=== PATIENT | male | born 1960 | race Caucasian/White ===

== ENCOUNTER 2021-07-16 18:18 | Observation (INO) ==
[2021-07-16] MEDS ORDERED: HYDROmorphone INJ 1 MG/ML SYRINGE IV STA ×2 (18:43→19:16)
[2021-07-16] MEDS ORDERED: LIDOCAINE 2% 20 MG/ML 5 ML SYR IV ONE (18:53)
[2021-07-16] MEDS ORDERED: LIDOCAINE 2% JELLY 5 ML TUBE ONE (18:53)
--- NOTE | 2021-07-16 18:57 | Emergency Department Note ---
Impression & Plan Urinary retention, Hematuria ED Provider Note Name: DAVY BENITES Age: 60 Sex: M Arrives Via: Walk-In Informant: Patient, ED Provider: Patel Crooks MD Chief Complaint: Inability to urinate Impression: As per impressions above Medical Decision Makin-year-old gentleman on no chronic medications with a history of gout, renal colic and likely hypertension arrives for evaluation of inability to urinate. Patient with gradually worsening retention over the last month or so acutely retaining this morning as last urine output about 8 AM. He was seen by his urologist in [facility] where multiple attempts to place a Childress as well as a cystoscopy as well as a wire were unsuccessful in getting a Childress placed to help drain his bladder. On arrival he does have some blood at the meatus though his ultrasound bedside reveals well over a liter of urine in the bladder itself. Nursing attempted to place coud though given resistance and herrera blood this attempt was abandoned. Urology was consulted and given these findings they will take patient to the OR for further evaluation. The concern is that there is a false passage/urethral tear. Patient's pain was controlled with IV Dilaudid. A free anesthesia work-up was initiated including EKG, chest x-ray and basic labs. He has mild renal insufficiency consistent with acute retention. Hospitalist was made aware is likely patient will need monitoring postoperatively. Patient and kept up-to-date on plans and patient stable throughout Triage/Nursing Notes reviewed by Me Differentials: BPH, urethral injury, UTI, prostatitis, renal failure, electro lyte abnormality amongstother pathologies. Vital Signs: reviewed and remarkable for hypertension Interventions: Dilaudid IV Labs:Reviewed and remarkable for mild CR elevation Imaging:Bedside ultrasound by me reveals a large amount of urine within the bladder Consults:Dr. Bhat of [facility] urology. Patient taken to the OR for further management Plan: Disposition:Taken to the OR for further management Condition: Good History of Present Illness: 60-year-old gentleman arrives for evaluation of urinary retention. Patient states that for the last month he has been having some decreased urinary abilities and increased urination. About a week ago he noticed significant difficulties. And then this morning around 8 AM he has not had any urination since. He was seen by his urologist in [facility] who attempted to place a Childress due to inability scoped him and said he would need to go to [facility] for evaluation. He has never been at this facility. He has not seen any urologist here. He states he does not believe any of the urologist are aware that he is coming. Patient states he is having severe suprapubic pain that radiates to both flanks. Associated with mild nausea. Ruchi n is worse with movement and only slightly better with rest. Denies any leg swelling, vomiting, chest pain, shortness of breath, fevers, chills, headache, neck pain or any other signs or symptoms. No previous issues to this degree. He does have a history of kidney stones and feels he may have had some scarring from that. ROS: See above HPI for pertinent positives & negatives. A total of 10 systems reviewed and were otherwise negative. Past Medical History:Gout, renal colic Past Surgical History:No previous surgeries Family History:Healthy Social History: for 40+ years, no smoking, no alcohol, no drugs, has 1 daughter Home Medications:none Allergies:nkda Vitals:Blood Pressure: 206/125, Pulse 93, RR 20, T 36.7C, O2 98% on RA Physical Exam: GENERAL: Patient is very uncomfortable appearing and in moderate distress. EYES: No scleral icterus, unremarkable pupils. ENT: Mucous membranes moist, no nasal congestion. NECK: No masses appreciated, nomeningismus, trachea is midline. RESPIRATORY: No dyspnea. Clear to auscultation and equal bilaterally. No wheeze, no rhonchi. CARDIOVASCULAR: Regular rate and rhythm.No murmurs, rubs, gallops appreciated. GASTROINTESTINAL: TTP over suprapubic, otherwise abdomen soft, non-tender, no peritonitis.Bowel sounds positive.No masses appreciated. : Normal BACK: No midline tenderness, no CVA tenderness EXTREMITIES: Normal motion all extremities, no cyanosis, no edema. NEUROLOGIC: Alert and oriented, no acute motor or sensory deficits, no focal weakness, cranial nerves grossly intact. SKIN: No rash, no jaundice, no diaphoresis. PSYCH: Appropriate GCS: 15 ED Course: Times/Reassessments: Patient vastly improved with some IV Dilaudid though still uncomfortable. Patel Crooks MD Past Med/Surg History Social History Smoking Status: Never smoker Second Hand Exposure: No; Hx Alcohol Use: No Hx Substance Use: No Communication Ability: Effective Beliefs That Will Affect Care: None Current Living Situation: Spouse Feels Safe at Home: Yes Assistive Devices: Glasses Allergies Allergies Allergy/AdvReac Type Severity Reaction Status Date / Time No Known Allergies Allergy Unverified 07/16/21 20:17 Home Meds Home Medications Medication Instructions Recorded Confirmed acetaminophen 500 mg tablet 1,000 mg PO Q6H PRN 07/16/21 07/16/21 (Tylenol Extra Strength) alfuzosin 10 mg tablet,extended 10 mg PO QPM 07/16/21 07/16/21 release 24 hr cyclobenzaprine 10 mg tablet 10 mg PO TID PRN 07/16/21 07/16/21 hydrocodone 5 mg-acetaminophen 325 1 tab PO Q6 PRN 07/16/21 07/16/21 mg tablet indomethacin 50 mg capsule 50 mg PO TID PRN 07/16/21 07/16/21 Previous Rx's Medication Instructions Recorded cephalexin 500 mg capsule 500 mg PO BID 7 Days #14 cap 07/17/21 Results & Data (ED) Vital Signs Vital Signs - 24 hr 07/16/21 18:21 07/16/21 19:30 07/16/21 20:23 Temperature 36.7 C Temperature Source Temporal Artery Scan Pulse Rate 93 H 80 Pulse Rate [Apical] 84 Pulse Rhythm Regular Respiratory Rate 20 16 18 Respiratory Effort / Characteristics Non-Labored Spontaneous Respiratory Depth Normal Blood Pressure 206/125 H 178/101 H Blood Pressure [Left Arm] 173/94 H Blood Pressure Mean 152 Blood Pressure Mean [Left Arm] 120 Blood Pressure Position Sitting Pulse Oximetry 98 95 95 Oxygen Delivery Method Room Air Room Air Room Air Sepsis Recent Fever Within 48 Hours No Sepsis New/Unexplained Change in Mental Status No Sepsis Action Taken by Nursing No Action Required Laboratory Data Result diagrams: 07/17/21 09:29 07/17/21 09:29 Lab Results 07/16/21 07/16/21 Range/Units 18:57 18:57 WBC 9.73 (4.8-10.8) K/uL RBC 5.46 (4.7-6.1) M/uL Hgb 16.3 (14.0-18.0) g/dL Hct 46.3 (42-52) % MCV 84.8 (80-100) fL MCH 29.9 (25-34) pg MCHC 35.2 (32-36) g/dL RDW Std Deviation 41.5 (36.4-46.3) fL RDW Coeff of Shanell 13.5 (11.5-14.5) % Plt Count 269 (130-400) K/uL MPV 9.0 (7.4-10.4) fL Immature Gran % (Auto) 0.9 % Neut % (Auto) 63.7 % Lymph % (Auto) 25.5 % Sumner % (Auto) 7.9 % Eos % (Auto) 1.7 % Baso % (Auto) 0.3 % Neut # (Auto) 6.19 (1.4-6.5) K/uL Lymph # (Auto) 2.48 (1.2-3.4) K/uL Sumner # (Auto) 0.77 H (0.11-0.59) K/uL Eos # (Auto) 0.17 (0-0.5) K/uL Baso # (Auto) 0.03 (0-0.2) K/uL Immature Gran # (Auto) 0.09 H (0.00-0.02) K/uL Sodium 138 (136-145) mmol/L Potassium 4.0 (3.5-5.1) mmol/L Chloride 105 (98-107) mmol/L Carbon Dioxide 26 (21-32) mmol/L Anion Gap 7 (3-11) BUN 20 (6-23) mg/dl Creatinine 1.46 H (0.6-1.4) mg/dl Est Cr Clr Drug Dosing 79.7 ml/min Est GFR ( Amer) 60.2 ml/min Est GFR (Non-Af Amer) 51.9 ml/min BUN/Creatinine Ratio 13.7 (10-20) Glucose 101 H (70-99(Fasting)) mg/dl Calcium 9.9 (8.5-10.1) mg/dl Total Bilirubin 0.7 (0.2-1.0) mg/dl Direct Bilirubin 0.1 (0-0.2) mg/dl AST 18 (13-39) U/L ALT 16 (7-52) U/L Alkaline Phosphatase 60 (34-104) U/L Total Protein 7.2 (6.0-8.3) gm/dl Albumin 4.4 (3.4-5.0) gm/dl Administered Medications Alfuzosin HCl (Alfuzosin Hcl 10 Mg Tab) 10 mg PO QPM LYUDMILA Stop: 08/15/21 22:30 Last Admin: 07/17/21 01:29 Dose: Not Given Documented by: [id number] Sodium Chloride (Nss 1000ml) 1,000 mls @ 80 mls/hr IV .[id number] LYUDMILA Stop: 08/15/21 22:30 Last Admin: 07/16/21 23:17 Dose: 80 mls/hr Documented by: [id number] Oxycodone/Acetaminophen (Oxycodone/Acetaminophen 5mg/325mg Tab) 1 tab PO Q4H PRN PRN Reason: MODERATE Pain (4,5,6) & Pre PT Stop: 07/30/21 22:30 Last Admin: 07/17/21 04:57 Dose: 1 tab Documented by: [id number] Discontinued Medications Hydromorphone HCl (Hydromorphone Inj 1 Mg/Ml Syringe) 1 mg IV NOW STA Stop: 07/16/21 18:44 Last Admin: 07/16/21 19:20 Dose: 1 mg Documented by: [id number] Hydromorphone HCl (Hydromorphone Inj 1 Mg/Ml Syringe) 1 mg IV NOW STA Stop: 07/16/21 19:17 Last Admin: 07/16/21 19:29 Dose: Not Given Documented by: [id number] Ciprofloxacin (Cipro / D5w) 400 mg in 200 mls @ 100 mls/hr IV NOW STA; Protocol Stop: 07/16/21 21:56 Last Infusion: 07/16/21 22:33 Dose: 0 mls/hr Documented by: [id number] Admin: 07/16/21 20:09 Dose: 100 mls/hr Documented by: [id number] Lidocaine HCl (Lidocaine 2% 20 Mg/Ml 5 Ml Syr) Confirm Administered Dose 100 mg IV .STK-MED ONE Stop: 07/16/21 18:54 Last Admin: 07/16/21 19:29 Dose: Not Given Documented by: [id number] Lidocaine HCl (Lidocaine 2% Jelly 5 Ml Tube) Confirm Administered Dose 5 ml .ROUTE .STK-MED ONE Stop: 07/16/21 18:54 Last Admin: 07/16/21 19:25 Dose: 5 ml Documented by: [id number] Menthol (Cough Drop (Sugar Free) Dorina 24 Dorina/1 Box) Confirm Administered Dose 24 dorina BUCCAL .Advaxis-MED ONE Stop: 07/17/21 04:00 Last Admin: 07/17/21 04:00 Dose: 24 dorina Documented by: [id number] Imaging Data Radiologist's Impression: Chest X-Ray 07/16/21 19:27 XR chest 1V portable CLINICAL HISTORY: pre-op. Evaluate cardiopulmonary status COMPARISON STUDY: No previous studies for comparison. TECHNIQUE: 1 view of the chest FINDINGS: Single frontal view of the chest demonstrates the cardiomediastinal silhouette to be within normal limits. The lungs are clear of alveolar opacities. There is no evidence for pleural effusion. There is no evidence for vascular congestion. There is no acute osseous pathology. IMPRESSION: 1. No acute cardiopulmonary disease. ACT 112: Negative or not required by law. Electronically signed by: Shelton Jack M.D. 07/16/2021 8:06 PM Discharge Plan Visit Data Chief Complaint: Unable to Void Stated Complaint: UNABLE TO VOID ED Provider: Patel Crooks Discharge Problem: Urinary retention, Hematuria Patient Disposition: Admitted As Inpatient Condition: Good Discharge Instructions Interventions: ED Discharge Assessment Last Done: 07/16/21 20:23
[2021-07-16 19:15] LABS: Basophils # (auto) 0.03 K/uL (0-0.2); Basophils % (auto) 0.3 %; Eosinophils # (auto) 0.17 K/uL (0-0.5); Eosinophils % (auto) 1.7 %; Hematocrit (blood only) 46.3 % (42-52); Hemoglobin 16.3 g/dL (14.0-18.0); Immature Granulocytes # (auto) 0.09 K/uL (0.00-0.02); Immature Granulocytes % (auto) 0.9 %; Lymphocytes # (auto) 2.48 K/uL (1.2-3.4); Lymphocytes % (auto) 25.5 %; Mean Corpuscular Hemoglobin 29.9 pg (25-34); Mean Corpuscular Hgb Conc 35.2 g/dL (32-36); Mean Corpuscular Volume 84.8 fL (80-100); Monocytes # (auto) 0.77 K/uL (0.11-0.59); Monocytes % (auto) 7.9 %; Neutrophils # (auto) 6.19 K/uL (1.4-6.5); Neutrophils % (auto) 63.7 %; Platelet Count 269 K/uL (130-400); RDW Coefficient of Variation 13.5 % (11.5-14.5); RDW Standard Deviation 41.5 fL (36.4-46.3); Red Blood Count 5.46 M/uL (4.7-6.1); White Blood Count 9.73 K/uL (4.8-10.8)
[2021-07-16 19:31] LABS: Albumin Level 4.4 gm/dl (3.4-5.0); BUN Creatinine Ratio 13.7 (10-20); Bilirubin Direct 0.1 mg/dl (0-0.2); Bilirubin,Total 0.7 mg/dl (0.2-1.0); Calcium 9.9 mg/dl (8.5-10.1); Creatinine Clr Calc Pharmacy 79.7 ml/min; Est GFR (African American) 60.2 ml/min; Est GFR (Non-African American) 51.9 ml/min; Total Protein 7.2 gm/dl (6.0-8.3)
[2021-07-16] MEDS ORDERED: CIPROFLOXACIN / D5W 400 MG/200 ML BAG IV STA (19:57)
--- NOTE | 2021-07-16 20:05 | Urology Consultation ---
Date of Consultation July 16, 2021 Assessment & Plan (1) Urinary retention: Based on the patient's symptoms I suspect the patient is suffering from obstructive uropathy. His symptomatology is consistent with this and may be related to BPH. Because the patient has already had instrumentation attempted at bedside and has had an unsuccessful attempt at placing a Childress catheter emergency department I feel it is prudent to take the patient to the operating room for formal cystoscopy. I discussed case with my attending physician Dr. Bhat who agrees and we have notified the operating room team and will proceed with this procedure this evening. I have obtained consent from the patient for cystoscopy with possible urethral dilatation. Dr. Bhat will determine if any additional interventions are required at the time of surgery. I have outlined the risks, benefits, and alternatives with the patient. Additional recommendations be forthcoming based on operative findings and the patient's postoperative recovery As patient has had instrumentation performed in his previous encounter I have ordered preoperative ciprofloxacin. ATTENDING NOTE: Independently evaluated, assessed, and examined. Agree with above. Anuric/Obstructed since approx 8 am. Failed attempted catheter at [facility] with hematuria post attempt. Severe distension with discomfort. Risks and benefits discussed at length for procedure. These include bleeding, infection, injury to surrounding tissues or organs, and risks associated with anesthesia. Patient states understanding and agrees to proceed. Will sign consent and proceed. Due to severe obstruction, anuria, and concern for impending rupture or damage to kidney with continued obstruction will deem need for emergent intervention. Plan for emergent Cystoscopy with dilation and catheter placement. History of Present Illness Reason for Consultation: Urinary retention History of Present Illness This is a 60-year-old male who presented to [facility] emergency department secondary to inability to urinate. Patient says that over the past several months he has noted some symptoms of obstructive uropathy. He says that he has noted a decreased urine stream and he has sensation of incomplete bladder emptying. He denies any dysuria or hematuria. He denies any fevers, shakes, or chills. He does not have a known history of BPH. He did seek medical attention for this problem previously and he was initiated on Flomax with no relief of his symptoms. Patient does note that when he stands to urinate takes considerable amount of time to initiate voiding. Patient notes that he was able to void yesterday with a certain degree of difficulty however he has not been able to void since approximately 8:00 AM this morning. Because of this problem he sought medical attention at the urologist office in [place], [place]. He saw this service at approximately 3:00 PM today. They attempted to place a Childress catheter in the office without success. A bedside cystoscopy was also attempted without success. Because of this it was recommended that the patient report to [facility] emergency department for further evaluation. Patient says he has never had a cystoscopy before. His most recent oral intake was at approximately 2:00 PM today at which she had approximately 2 small chicken nuggets. In the emergency department the patient did have a chest x-ray that did not show any evidence of pleural effusion or pneumonia. CBC revealed white blood cell co unt, hemoglobin, hematocrit, and platelet count are all within normal range. Chemistry profile showed sodium and potassium are both normal. BUN was within normal range but creatinine had a slight elevation at 1.46. There were no previous labs available for comparison. There is no significant elevation of LFTs. The patient's COVID test was performed was noted to be negative. Patient did have a an EKG that showed sinus rhythm without changes indicative of acute ischemia. It is noteworthy to mention that in the emergency department at [facility] the patient had a bladder scan where he was noted to have an excess of 1 L of urine/fluid in his bladder. Several attempts were made to place Childress catheter by nursing staff and that they were able to retrieve some herrera blood but it was felt that the Childress catheter did not pass into his bladder properly and therefore a Childress catheter was not able to be placed. The patient denies any significant past medical history other than arthritis and gout. Patient says that he did have a stress test a few years ago that was done for preoperative clearance for a orthopedic procedure. He denies history of diabetes or coronary artery disease. 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 He was uncomfortable secondary to the inability to empty his bladder. Allergies Allergy/AdvReac Type Severity Reaction Status Date / Time No Known Allergies Allergy Unverified 07/16/21 20:17 Home Medications Medication Instructions Recorded Confirmed Type acetaminophen 500 mg tablet 1,000 mg PO Q6H PRN 06/06/22 06/06/22 History (Tylenol Extra Strength) alfuzosin 10 mg tablet,extended 10 mg PO QPM 07/16/21 07/16/21 History release 24 hr cyclobenzaprine 10 mg tablet 10 mg PO TID PRN 07/16/21 07/16/21 History hydrocodone 5 mg-acetaminophen 325 1 tab PO Q6 PRN 07/16/21 07/16/21 History mg tablet indomethacin 50 mg capsule 50 mg PO TID PRN 07/16/21 07/16/21 History Patient History Social History Smoking Status: Never smoker Feels Safe at Home: Yes Review of Systems Constitutional: no fever and no chills Eyes: no diplopia Ear, Nose, Mouth, Throat: no ear pain Respiratory: no cough and no dyspnea Cardiovascular: no chest pain Gastrointestinal: no abdominal pain, no nausea and no vomiting Genitourinary: + as per Subjective / HPI; no flank pain Musculoskeletal: no back pain Integumentary: no rash Neurologic: no localized weakness Physical Exam Constitutional: WD/WN, vitals as above Eyes: no conjunctival abnormality ENMT: Ears: no hearing impairment and no external ear abnormality Mouth: no oropharynx abnormality Neck: trachea midline Respiratory: normal respiratory effort, lungs clear to auscultation Cardiovascular: Rate/Rhythm: regular rate and regular rhythm Gastrointestinal (Abdomen): Abdomen is soft and nondistended. Patient did have considerable discomfort with palpation of the suprapubic area. Musculoskeletal: No calf tenderness Skin: no rashes Neurologic: moves all extremities Psychiatric: A+Ox3, euthymic affect Results & Data ([facility]) Vital Signs (Past 12 Hours) Vital Signs Temp Pulse Pulse Resp BP BP Pulse Ox 07/16/21 19:30 84 16 173/94 H 95 07/16/21 18:21 36.7 C 93 H 20 206/125 H 98 PG Care Time/CCT Total # of Minutes Spent Total Time Spent with Patient: Total time spent is greater than 50% in coordination of care (as documented) at patient's floor/unit and/or counseling patient: Coding Level of Care Code 39275 Inpt Consult Level 5 Diagnoses Urinary retention R33.9
--- NOTE | 2021-07-16 20:08 | XRay Report ---
XR chest 1V portable CLINICAL HISTORY: pre-op. Evaluate cardiopulmonary status COMPARISON STUDY: No previous studies for comparison. TECHNIQUE: 1 view of the chest FINDINGS: Single frontal view of the chest demonstrates the cardiomediastinal silhouette to be within normal li mits. The lungs are clear of alveolar opacities. There is no evidence for pleural effusion. There is no evidence for vascular congestion. There is no acute osseous pathology. IMPRESSION: 1. No acute cardiopulmonary disease. ACT 112: Negative or not required by law. Electronically signed by: Shelton Jack M.D. 07/16/2021 8:06 PM
[2021-07-16] MEDS ORDERED: fentaNYL citrate 100 MCG/2 ML VIAL IV PRN (20:09)
[2021-07-16] MEDS ORDERED: ePHEDrine sulfate 50 MG/ML AMP IV PRN (20:09)
[2021-07-16] MEDS ORDERED: ONDANSETRON INJ 2 MG/ML 2 ML VIAL IV PRN (20:09)
[2021-07-16] MEDS ORDERED: ATROPINE SULFATE 0.1 MG/ML 10ML SYR IV PRN (20:09)
--- NOTE | 2021-07-16 20:09 | Anesthesiology Consultation ---
Date of Service July 16, 2021 Assessment & Plan (1) Encounter for pre-operative examination: Chart Review Chart Review: Patient NOT seen in Pre Admission Testing emergent nature of procedure Consults Requested none History Surgery Operation Date: 07/16/21 20:30 Proposed Procedures p Cystoscopy - Bob Bhat, Height/Weight Height: 6 ft 2 in Weight: 135.4 kg Social History Smoking Status: Never smoker Physical Exam Vital Signs Last Vital Signs Temp 98.1 F 07/16/21 18:21 Pulse 84 07/16/21 19:30 Resp 16 07/16/21 19:30 BP 173/94 H 07/16/21 19:30 Pulse Ox 95 07/16/21 19:30 Testing Laboratory Results 07/16/21 18:57 07/16/21 18:57 Electrocardiogram Date: 07/16/21 Findings: + NSR @ Chest X-Ray Date: 07/16/21 Findings: + NAD
[2021-07-16] MEDS ORDERED: fentaNYL citrate 100 MCG/2 ML VIAL ONE (20:13)
[2021-07-16] MEDS ORDERED: LIDOCAINE 2% 2 ML VIAL/AMP(20MG/ML) INFIL ONE (20:13)
[2021-07-16] MEDS ORDERED: PROPOFOL IV EMULSION 10 MG/ML 20 ML VIAL IV ONE (20:13)
[2021-07-16] MEDS ORDERED: SUCCINYLCHOLINE 100MG/5ML SYR IV ONE (20:13)
[2021-07-16] MEDS ORDERED: ONDANSETRON INJ 2 MG/ML 2 ML VIAL ONE (20:13)
--- NOTE | 2021-07-16 20:33 | History & Physical Report ---
Date of Service July 16, 2021 History of Present Illness Primary Care Provider: NO PCP Allergies Allergy/AdvReac Type Severity Reaction Status Date / Time No Known Allergies Allergy Unverified 07/16/21 20:17 Home Medications Medication Instructions Recorded Confirmed Type acetaminophen 500 mg tablet 1,000 mg PO Q6H PRN 07/16/21 07/16/21 History (Tylenol Extra Strength) alfuzosin 10 mg tablet,extended 10 mg PO QPM 07/16/21 07/16/21 History release 24 hr cyclobenzaprine 10 mg tablet 10 mg PO TID PRN 07/16/21 07/16/21 History hydrocodone 5 mg-acetaminophen 325 1 tab PO Q6 PRN 07/16/21 07/16/21 History mg tablet indomethacin 50 mg capsule 50 mg PO TID PRN 07/16/21 07/16/21 History Past Med/Surg History Social History Smoking Status: Never smoker Feels Safe at Home: Yes Results & Data Results & Data ([facility]) Vital Signs (Past 12 Hours) Vital Signs Temp Pulse Pulse Resp BP BP Pulse Ox 07/16/21 20:23 80 18 178/101 H 95 07/16/21 19:30 84 16 173/94 H 95 07/16/21 18:21 36.7 C 93 H 20 206/125 H 98 Code Status & VTE Plan VTE Prophylaxis Plan VTE Prophylaxis will be ordered: Yes Resident Activity Tracking Resident Involvement: Resident Care Provided Care Provided: Adult Hospital Medicine
--- NOTE | 2021-07-16 21:15 | Operative Report ---
PG Post Operative Report Pre & Post Diagnosis Operation Date: 07/16/21 20:30 Pre-Op Diagnosis: Urinary Stricture, Large Volume Retention Post-Op Diagnosis: Same I identified the patient and participated in the time-out.: Yes Procedure Operation Date: 07/16/21 20:30 Actual Procedures p Cystoscopy with Urethral Dilation and difficult catheter placement (Not Applicable) - Bob Bhat DO Surgeon Bob Bhat, II, DO Watch Repairer None Estimated Blood Loss 5 Findings Consistent with Post-Op Diagnosis Severe pinpoint stricture of bulbar urethra with large false passage on the left lateral position next to stricture. Large prostatic varicosity. Dilated sequentially to 20 Fr. Specimens None Drains 18 Fr [place] Tip Complications none Disposition Disposition: Recovery Room Indications Patient with severe retention and failed catheter placement under scope at outlying facility. Risks and benefits discussed at length. Description of Procedure Patient was consented and brought back to the operating room. Patient was placed under anesthesia in the supine position and moved to the dorsal lithotomy position. Patient was prepped and draped in the regular sterile fashion. A time out was completed. A 30 degree Cystoscope was placed into the urethra. At the bulbar urethra a large false passage was noted on the left lateral wall of the urethra. The true lumen was able to be identified with a pinpoint stricture. A wire was able to be placed. A 5 Fr catheter was able to be placed and urine was aspirated. The wire was replaced and the stricture was sequentially dilated with Grazyna dilators from 10 fr to 20 Fr. The scope was then advanced to bladder and the entire bladder was examined after draining the bladder. The UO's were identified as well as the bladder neck, trigone, dome, and the other important landmarks. Large varicosities were appreciated. The urethra was reevaluated. No major areas of concern. The large false passage was having minor bleeding but without significant issue. The stricture appeared short and was well dilated. The bladder was inspected a final time. The bladder was partially emptied. The scope was removed with the wire remaining in place. A 18 fr [place] tip was placed over the wire and the bladder drained well with a mild pink tinge. Approx 1.2 L of urine were drained with initial placement of the scope. The patient was cleaned, aroused from anesthesia, and transferred to the pacu in stable condition having tolerated the procedure well with no complications. I was present and participated in all aspects of the procedure. The patient will be monitored in the PACU until transferred. Plan to maintain catheter for approx 2 weeks and remove in office with plans to re-evaluate at some point after removal. I attest to the content of the Intraoperative Record and any orders documented therein. Any exceptions are noted below.
--- NOTE | 2021-07-16 21:28 | Anesthesiology Progress Note ---
Date of Service July 16, 2021 Anesthesia Post Procedure Vital Signs Vital Signs: Temp Pulse Pulse Resp BP BP Pulse Ox 07/16/21 21:20 87 18 138/98 96 07/16/21 21:14 97.5 F L 96 H 18 142/107 H 95 07/16/21 20:23 80 18 178/101 H 95 07/16/21 19:30 84 16 173/94 H 95 07/16/21 18:21 98.1 F 93 H 20 206/125 H 98 Transfer of Care Handoff Completed per policy Notes Mental Status: alert / awake / arousable and participated in evaluation Patient Amnestic to Procedure: Yes Nausea / Vomiting: adequately controlled Pain: adequately controlled Airway Patency, RR, SpO2: stable & adequate BP & HR: stable & adequate Hydration State: stable & adequate Anesthetic Complications: no major complications apparent and Pt Satisfied with anesthetic care
[2021-07-16] MEDS ORDERED: MoRPHine SULFATE 2 MG/ML CARP IV PRN (22:31)
[2021-07-16] MEDS ORDERED: SODIUM CHLORIDE 0.9% 1000ML 1,000 ML IV SCH (22:31)
[2021-07-16] MEDS ORDERED: oxyCODONE/ACETAMINOPHEN 5mg/325mg TAB PO PRN (22:31)
[2021-07-16] MEDS ORDERED: ALFUZOSIN HCL 10 MG TAB PO SCH (22:31)
[2021-07-17 00:27] LABS: Appearance Urine Turbid (Clear); Bacteria Urine Automated Negative (Negative); Blood Urine 3+ (Negative); Color Urine Red; Epithelial Cell Urine Auto >30 /lpf (0-5); Glucose Urine UA Negative (Negative); Ketones Urine Negative (Negative); Leukocyte Esterase Urine 2+ (Negative); Nitrite Urine Positive (Negative); Protein Urine 2+ (Negative); Specific Gravity Urine 1.018 (1.000-1.030); Urobilinogen Urine Negative (Negative)
[2021-07-17 00:55] LABS: Bilirubin Urine 1+ (Negative)
[2021-07-17 01:11] LABS: RBC Urine Automated >30 /hpf (0-4)
[2021-07-17] MEDS ORDERED: COUGH DROP (SUGAR FREE) LOZ 24 LOZ/1 BOX BUCCAL ONE (03:59)
--- NOTE | 2021-07-17 08:41 | Urology Progress Note ---
Date of Service July 17, 2021 Assessment & Plan (1) Urinary retention: Plan: - POD #1 s/p Cystoscopy with Urethral Dilation and difficult catheter placement with Dr. Bhat. - Subjectively feeling much better today. - Tolerating the Childress catheter well. - Catheter is intact and currently draining clear yellow urine. - Afebrile, hemodynamically stable. - Labs reviewed - Wbc 11.26, Hemoglobin 14.8, Creatinine 1.50. - Urine culture pending. - Discussed recommendation to maintain Childress catheter for at least 2 weeks to allow time for healing. Pt verbalized understanding and is agreeable. - He can follow-up with his primary urologist or with our office for voiding trial and continued care. Our office with call him to arrange if needed. - Pt is stable for discharge home today with Childress catheter. - Will d/c with course of PO antibiotics and can change if needed based on final culture results. - Expected clinical course reviewed, all questions were answered. Admission and Anticipated Discharge Date Admission Date: July 16, 2021 Subjective Pt examined at bedside this AM. Awake, resting in bed on arrival. No acute distress. No fevers. Subjectively feeling much better today. Childress catheter intact, draining clear yellow urine. Denies any pain or discomfort at present. Tolerating diet, no nausea or vomiting. Review of Systems Constitutional: as per Subjective / HPI; no fever and no chills Cardiovascular: no chest pain, no dyspnea and no lightheadedness Gastrointestinal: as per Subjective / HPI; no nausea and no vomiting Genitourinary: + as per Subjective / HPI Physical Exam Constitutional: cooperative and comfortable; no acute distress Respiratory: normal respiratory effort; no respiratory distress and no labored breathing Gastrointestinal (Abdomen): Inspection/Auscultation: abdomen normal to inspection Skin: No visible rashes or lesions Neurologic: moves all extremities and awake Psychiatric: A+Ox3, euthymic affect Genitourinary: Childress catheter intact, draining clear yellow urine Results & Data ([facility]) Vital Signs (Past 12 Hours) Vital Signs Temp Pulse Pulse Resp BP Pulse Ox 07/17/21 06:58 37.1 C 63 18 131/60 96 07/17/21 04:51 36.8 C 59 L 16 144/85 H 96 07/17/21 00:50 36.8 C 75 16 133/83 94 07/16/21 23:50 36.6 C 70 16 134/83 95 07/16/21 22:52 36.6 C 76 16 131/79 93 07/16/21 22:20 36.4 C L 71 16 144/89 H 92 07/16/21 21:54 36.8 C 84 18 146/96 H 93 07/16/21 21:40 36.6 C 81 18 128/88 92 07/16/21 21:30 79 18 129/91 95 07/16/21 21:20 87 18 138/98 96 07/16/21 21:14 36.4 C L 96 H 18 142/107 H 95 PG Care Time/CCT Total # of Minutes Spent Total Time Spent with Patient: Total time spent is greater than 50% in coordination of care (as documented) at patient's floor/unit and/or counseling patient: Coding Level of Care Code 73485 Subseq Hosp Care Lvl 2 Diagnoses Urinary retention R33.9
[2021-07-17 09:55] LABS: Basophils # (auto) 0.01 K/uL (0-0.2); Basophils % (auto) 0.1 %; Eosinophils # (auto) 0.12 K/uL (0-0.5); Eosinophils % (auto) 1.1 %; Hematocrit (blood only) 43.6 % (42-52); Hemoglobin 14.8 g/dL (14.0-18.0); Immature Granulocytes # (auto) 0.05 K/uL (0.00-0.02); Immature Granulocytes % (auto) 0.4 %; Lymphocytes # (auto) 1.83 K/uL (1.2-3.4); Lymphocytes % (auto) 16.3 %; Mean Corpuscular Hemoglobin 29.2 pg (25-34); Mean Corpuscular Hgb Conc 33.9 g/dL (32-36); Mean Platelet Volume 8.8 fL (7.4-10.4); Monocytes # (auto) 0.79 K/uL (0.11-0.59); Neutrophils # (auto) 8.46 K/uL (1.4-6.5); Neutrophils % (auto) 75.1 %; Platelet Count 214 K/uL (130-400); RDW Coefficient of Variation 13.7 % (11.5-14.5); RDW Standard Deviation 42.9 fL (36.4-46.3); Red Blood Count 5.07 M/uL (4.7-6.1); White Blood Count 11.26 K/uL (4.8-10.8)
[2021-07-17 10:07] LABS: BUN Creatinine Ratio 13.3 (10-20); Calcium 8.8 mg/dl (8.5-10.1); Creatinine Clr Calc Pharmacy 73.6 ml/min; Est GFR (African American) 58.2 ml/min; Est GFR (Non-African American) 50.2 ml/min
--- NOTE | 2021-07-17 12:39 | Discharge Summary ---
Date of Service July 17, 2021 Admission HPI Per Admitting Provider 60-year-old male who presented to [facility] emergency department secondary to inability to urinate. Patient says that over the past several months he has noted some symptoms of obstructive uropathy. He says that he has noted a decreased urine stream and he has sensation of incomplete bladder emptying. He denies any dysuria or hematuria. He denies any fevers, shakes, or chills. He does not have a known history of BPH. He did seek medical attention for this problem previously and he was initiated on Flomax with no relief of his symptoms. Patient does note that when he stands to urinate takes considerable amount of time to initiate voiding. Patient notes that he was able to void yesterday with a certain degree of difficulty however he has not been able to void since approximately 8:00 AM this morning. Because of this problem he sought medical attention at the urologist office in [place], [place]. He saw this service at approximately 3:00 PM today. They attempted to place a Childress catheter in the office without success. A bedside cystoscopy was also attempted without success. Because of this it was recommended that the patient report to [facility] emergency department for further evaluation. Patient says he has never had a cystoscopy before. His most recent oral intake was at approximately 2:00 PM today at which she had approximately 2 small chicken nuggets. In the emergency department the patient did have a chest x-ray that did not show any evidence of pleural effusion or pneumonia. CBC revealed white blood cell count, hemoglobin, hematocrit, and platelet count are all within normal range. Chemistry profile showed sodium and potassium are both normal. BUN was within normal range but creatinine had a slight elevation at 1.46. There were no previous labs available for comparison. There is no significant elevation of LFTs. The patient's COVID test was performed was noted to be negative. Patient did have a an EKG that showed sinus rhythm without changes indicative of acute ischemia. It is noteworthy to mention that in the emergency department at [facility] the patient had a bladder scan where he was noted to have an excess of 1 L of urine/fluid in his bladder. Several attempts were made to place Childress catheter by nursing staff and that they were able to retrieve some herrera blood but it was felt that the Childress catheter did not pass into his bladder properly and therefore a Childress catheter was not able to be placed. The patient denies any significant past medical history other than arthritis and gout. Patient says that he did have a stress test a few years ago that was done for preoperative clearance for a orthopedic procedure. He denies history of diabetes or coronary artery disease. 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 He was uncomfortable secondary to the inability to empty his bladder. Admission Exam Per Admitting Provider Constitutional: WD/WN, vitals as above Eyes: no conjunctival abnormality ENMT: Ears: no hearing impairment and no external ear abnormality Mouth: no oropharynx abnormality Neck: trachea midline Respiratory: normal respiratory effort, lungs clear to auscultation Cardiovascular: Rate/Rhythm: regular rate and regular rhythm Gastrointestinal (Abdomen): Abdomen is soft and nondistended. Patient did have considerable discomfort with palpation of the suprapubic area. Musculoskeletal: No calf tenderness Skin: no rashes Neurologic: moves all extremities Psychiatric: A+Ox3, euthymic affect Principal Diagnosis Acute urinary retention, Urinary stricture Discharge Exam Constitutional cooperative and comfortable; no acute distress Respiratory normal respiratory effort; no respiratory distress and no labored breathing Gastrointestinal (Abdomen) Inspection/Auscultation: abdomen normal to inspection Skin Warm and dry Neurologic moves all extremities and awake Psychiatric A+Ox3, euthymic affect Genitourinary Childress catheter intact, draining clear yellow urine Discharge Data Allergies Allergy/AdvReac Type Severity Reaction Status Date / Time No Known Allergies Allergy Unverified 07/16/21 20:17 Consultations 07/16/21 19:31 ED Decision to Admit Stat Procedures Performed Operation Date: 07/16/21 20:30 Actual Procedures p Cystoscopy and Urethral Dilation(Not Applicable) - Bob Bhat, DO Hospital Course (1) Urinary retention: 60yo M who presented with acute urinary retention. He was subsequently taken to the OR for Cystoscopy with Urethral Dilation and difficult catheter placement with Dr. Bhat and was admitted postoperatively. - No acute issues postoperatively. - Stable overnight. - Tolerated Childress catheter with minimal bother. - Catheter draining clear yellow urine with good output. - Plan to maintain Childress catheter for at least 2 weeks to allow time for healing. Pt verbalized understanding and was agreeable. - He plans to follow-up with his primary urologist in [place] (Dr. Bowles) for voiding trial and continued care. - Pt is stable for discharge home today with Childress catheter. - Will d/c with course of PO antibiotics. - Pt agreeable to plan, all questions were answered. - He is aware to call our office with any further questions or concerns. Total Time Total Time Spent Total Time Spent (In Minutes): 15 Discharge Plan Discharge Items Patient Disposition: Home - Self-Care Reason For Visit: OBSTRUCTION OF BLADDER Discharge Diagnosis: Urinary Stricture, Large Volume Retention Condition on Discharge: Good Activity: Per Instructions section Lifting: No more than 25 pounds Bathing Comment: OK to shower. No tub baths or soaks. Sexual Activity: Wait until after follow-up appointment Exercise/Sports: Wait until after follow-up appointment Non-emergency contact: Surgeon and Urologist Call non-emergency contact if: you have any medication questions, your symptoms worsen, your pain is worsening, your pain is unusual for you and you have a fever Follow-up/Referrals: Bob Bhat DO [Physician] - 07/31/21 1:30 pm PCP,NO [Primary Care Provider] - Diet: Regular Addtl Attending Provider Instructions: Please call the urology office at [phone] with any questions, concerns or need to reschedule appointments for any reason. We are happy to assist you. Tips for your recovery at home: Dont be alarmed by brownish or reddish blood or clots in your urine. This is a result of the procedure. This may occur off and on. Drink plenty of fluids during the day (enough to keep your urine very light colored). This will help keep a healthy flow of urine. Do not lift >25 lbs until your followup Avoid constipation. Please use a stool softener (Colace) for the first two weeks after your procedure Be sure to finish the antibiotics as prescribed. If you go home with a catheter, please wash tubing where it enters your body twice daily with mild soap (Dove or Dial). Once your catheter is removed, expect some blood in your urine and some burning when you urinate. You should have an appointment to have this removed, if you do not please call our office to arrange. When to call [facility] at [phone]: Your urine contains heavy blood clots or your catheter is not draining. You are constantly leaking urine. Fever of 101F or higher, chills, nausea, or vomiting. Your pain is not relieved with medication. Pending Studies at Discharge: No Stand-Alone Forms: My [facility] [employer], Smoking Cessation Medications and DC Order Prescriptions: New cephalexin 500 mg capsule 500 mg PO BID 7 Days Qty: 14 RF: 0 Continued cyclobenzaprine 10 mg tablet 10 mg PO TID PRN (Reason: Muscle Spasm) RF: 0 hydrocodone-acetaminophen 5-325 mg tablet 1 tab PO Q6 PRN (Reason: Pain) RF: 0 acetaminophen [Tylenol Extra Strength] 500 mg Tablet 1,000 mg PO Q6H PRN (Reason: Pain) RF: 0 indomethacin 50 mg capsule 50 mg PO TID PRN (Reason: Pain) RF: 0 alfuzosin 10 mg tablet extended release 24 hr 10 mg PO QPM RF: 0 Discharge Orders: Discharge Order (Routine); Ordered 07/17/21 Ordered By: Zayra Parada/Other Patient Handouts: ED Childress Catheter, Care, ED Urinary Retention, Male Admission Data Admit Date/Time: 07/16/21 20:31 Attending Provider: Bob Bhat Admit Provider: Bob Bhat Primary Care Provider: PCP,NO Other Providers: Bob Bhat Other Interventions: Discharge Summary Assessment (RN) Last Done: 07/17/21 12:18 Coding Level of Care Code D/C DAY MANAGEMENT <30 MINS Diagnoses Urinary retention R33.9
== END 2021-07-17 13:38 | disposition home or self-care (01) ==
LOC: ED 18:18 → 3W 20:23 → OR 20:23
DX: N35.919 Unspecified urethral stricture, male, unspecified site; R33.9 Retention of urine, unspecified